=== PATIENT | female | born 1965 | race Caucasian/White ===

== ENCOUNTER 2024-07-26 20:26 | Emergency (ER) | payer OTHER ==
[2024-07-26 20:43] VITALS: RESP 18; TEMP 98; BMI 34.6
[2024-07-26] MEDS ORDERED: ACETAMINOPHEN INJECTION 100 ML ONE (21:24)
[2024-07-26] MEDS ORDERED: MECLIZINE HCL 25 MG TABLET (FP) ONE (21:24)
[2024-07-26] MEDS ORDERED: METOCLOPRAMIDE HCL INJECTION 10 MG/2 ML VIAL ONE (21:24)
[2024-07-26] MEDS: ACETAMINOPHEN 1000 MG/100 ML BAG IVPB ONE (21:40)
[2024-07-26] MEDS: MECLIZINE HCL 25 MG TABLET (FP) PO ONE (21:40)
[2024-07-26] MEDS: SODIUM CHLORIDE 0.9% 500 ML INFUS.BAG IV ONE (21:40)
[2024-07-26 21:49] LABS: BASO % 0.3 % (0-2.0); EOS % 1.2 % (0-4.5); HEMOGLOBIN 12.8 GM/dL (10.7-15.3); MCH 29.5 pg (25.7-33.7); MCHC 33.8 g/dl (32.0-36.0); MEAN CELL VOLUME 87.2 fl (80-96); MEAN PLT VOLUME 7.9 fl (7.5-11.1); MONO % 5.7 % (3.8-10.2); NEUT % 61.8 % (42.8-82.8); PLATELET COUNT 258 10^3/uL (134-434); RBC 4.36 M/mm3 (3.60-5.2); WHITE BLOOD COUNT 7.5 K/mm3 (4.0-10.0)
[2024-07-26] MEDS: METOCLOPRAMIDE HCL INJECTION 10 MG/2 ML VIAL IVPB ONE (22:04)
[2024-07-26 22:05] LABS: INR 1.08 (0.83-1.09); PROTHROMBIN TIME (PATIENT) 12.2 SEC (9.7-13.0)
[2024-07-26 22:07] LABS: ACTIVATED PTT 41.6 SECONDS (25.2-36.5); POTASSIUM 3.5 mmol/L (3.5-5.1)
[2024-07-26 22:09] LABS: ALBUMIN 3.7 g/dl (3.4-5.0); BLOOD UREA NITROGEN 17.9 mg/dL (7-18); CALCIUM 9.9 mg/dL (8.5-10.1)
[2024-07-26 22:12] LABS: CREATININE 0.8 mg/dL (0.55-1.3)
[2024-07-26 22:14] LABS: BILIRUBIN,TOTAL 0.2 mg/dL (0.2-1); TOT PROT 7.2 g/dl (6.4-8.2)
[2024-07-26 22:58] VITALS: BP 131/91; PULSE 66
== END 2024-07-26 23:56 | disposition home or self-care (01) ==
LOC: JER 20:26
PROC: 3E033NZ Introduction of Analgesics, Hypnotics, Sedatives into Peripheral Vein, Percutaneous Approach (ICD-10-PCS; principal; 2024-07-26)
PROC: 3E033GC Introduction of Other Therapeutic Substance into Peripheral Vein, Percutaneous Approach (ICD-10-PCS; 2024-07-26)
DX: R42 Dizziness and giddiness (principal); R00.2 Palpitations; R11.0 Nausea
CPT/HCPCS: 36415; 70450-TC; 80053; 82962; 83735; 84439; 84443; 84484; 85025; 85610; 85730; 86850; 86900; 86901; 93005; 93010; 99285-25; J0131